=== PATIENT | male | born 1955 | race Caucasian/White ===

== ENCOUNTER → 2023-09-01 07:06 | Outpatient (REF) | payer MEDICARE, BC, SELFPAY | LOC: DHCBC/DCA 07:06 | PROVIDERS: ATTENDING PHYSICIAN Internal Medicine Cardiovascular Disease; FAMILY PHYSICIAN Family Medicine | DX: R07.89 Other chest pain (principal) | CPT/HCPCS: 78452; 93017; A9500 ==

== ENCOUNTER → 2023-10-27 08:13 | Outpatient (REF) | payer MEDICARE, BC, SELFPAY | LOC: HWRCS 08:13 | PROVIDERS: ATTENDING PHYSICIAN Internal Medicine Cardiovascular Disease; FAMILY PHYSICIAN Family Medicine | DX: I42.9 Cardiomyopathy, unspecified (principal) | CPT/HCPCS: 93306 ==

== ENCOUNTER 2023-11-05 06:16 | Day surgery (SDC) | payer MEDICARE, BC, SELFPAY ==
[2023-11-05] VITALS (9 sets, daily range): BP systolic 125–155; BP diastolic 61–98; BMI 29.0
[2023-11-05] MEDS: NSS 275 ML IV (06:50)
[2023-11-05 07:07] LABS: Glucose - Point of Care 119 mg/dl (70-99)
[2023-11-05 07:17] LABS: Hematocrit 43.3 % (39.0-52.0); Hemoglobin 15.6 g/dL (13.0-18.0); Mean Corpuscular Hgb 32.3 pg (27.0-31.0); Mean Corpuscular Volume 89.6 fL (80.0-94.0); Mean Platelet Volume 10.5 fL (7.4-10.4); Platelet Count 162 10^3/uL (130-400); Red Blood Cell Count 4.83 10^6/uL (4.70-6.10); Red Cell Dist. Width 12.4 % (11.5-14.5); White Blood Cell Count 7.6 10^3/uL (4.8-10.8)
[2023-11-05 07:24] LABS: ALT (SGPT) 42 U/L (0-50); AST (SGOT) 34 U/L (17-59); Albumin 4.5 g/dl (3.5-5.0); Alkaline Phosphatase 57 U/L (38-126); Blood Urea Nitrogen 17 mg/dl (9-20); Calcium 9.3 mg/dl (8.4-10.2); Carbon Dioxide 25 mmol/L (22-30); Chloride 103 mmol/L (98-107); Estimated Creatinine Clearance 104 ml/min; Glucose 141 mg/dl (70-99); Sodium 137 mmol/L (135-145); Total Protein 6.9 g/dl (6.3-8.2); eGFR > 60.00
[2023-11-05] MEDS: NSS 1000 IV (08:23)
--- NOTE | 2023-11-05 08:23 | ITS.CL.CATH ---
[facility] - Catheterization
Cardiac Catheterization
Procedure Report:
LEFT HEART CATHETERIZATION
Date of Procedure: November 05, 2023
Referring: Jacky Street MD
PROCEDURES:
1. Left heart catheterization, coronary angiogram.
2. Ultrasound-guided access.
INDICATION: New cardiomyopathy
ACCESS: Right radial artery, 6 Fr. sheath, under US guidance.
HEMODYNAMICS : (mmHg)
AO (s/d) : 152/95
LV (s/d) : 152/9
LVEDP : 14
CORONARY FINDINGS
DOMINANCE: Right
LEFT MAIN: The left main artery is a large-caliber, short vessel which gives rise to the left anterior descending artery, a ramus intermedius branch and the left circumflex artery. There is minimal luminal irregularities.
LEFT ANTERIOR DESCENDING: The left anterior descending artery is a large-caliber vessel which gives rise to multiple small caliber diagonal branches as it courses through the anterior interventricular groove and wraps around the apex. There is
minimal luminal irregularities.
RAMUS INTERMEDIUS: The ramus intermedius artery is a small to medium caliber vessel with minimal luminal irregularities.
CIRCUMFLEX: The left circumflex artery is a medium caliber vessel which gives rise to 2 major obtuse marginal branches. There is minimal luminal irregularities.
RIGHT CORONARY ARTERY: The right coronary artery is a large-caliber, dominant vessel which gives rise to the right posterior descending artery and the right posterolateral system. There is minimal luminal irregularities.
SEDATION: 30 minutes of procedural sedation was utilized. An independent medical doctor was present to assist with and help manage the patient's level of consciousness and physiologic status.
RADIATION SUMMARY: Fluoro Time (min): 3.8, Dose (mGy): 365.5, DAP (Gy.cm2) : 23.35
Closure Device: Vascular band over right radial artery, 10 cc of air.
CONCLUSIONS
1. No obstructive coronary artery disease.
2. Mildly elevated LVEDP at 14 mmHg.
3. Significant ventricular ectopy was noted throughout the case while on telemetry.
RECOMMENDATIONS
1. Continued optimization of goal-directed medical therapy for presumed nonischemic cardiomyopathy. We will also increase beta-yanna and attempts of reducing ventricular ectopy.
2. Wean radial band per protocol.
3. Aggressive management of cardiovascular risk factors.
Copy to: Jacky Street MD
Sharmila Gomez MD, FACC, [facility]
[2023-11-05 08:49] LABS: Glucose - Point of Care 136 mg/dl (70-99)
== END 2023-11-05 11:05 | disposition home or self-care (01) ==
LOC: CATH 06:16
PROVIDERS: ATTENDING PHYSICIAN Internal Medicine Interventional Cardiology; FAMILY PHYSICIAN Family Medicine; OTHER PHYSICIAN Internal Medicine Cardiovascular Disease
DX: I42.9 Cardiomyopathy, unspecified (principal); R07.89 Other chest pain; I10 Essential (primary) hypertension; E78.00 Pure hypercholesterolemia, unspecified; I49.3 Ventricular premature depolarization; E11.9 Type 2 diabetes mellitus without complications; Z87.891 Personal history of nicotine dependence; Z82.49 Family history of ischemic heart disease and other diseases of the circulatory system; Z79.84 Long term (current) use of oral hypoglycemic drugs; Z79.82 Long term (current) use of aspirin
CPT/HCPCS: 99152; 99153; C1894; 80053; 82962; 85027; 93458; Q9967

== ENCOUNTER → 2024-02-16 08:13 | Outpatient (REF) | payer MEDICARE, BC, SELFPAY | LOC: HWRCS 08:13 | PROVIDERS: ATTENDING PHYSICIAN Physician Assistant; FAMILY PHYSICIAN Family Medicine | DX: I42.9 Cardiomyopathy, unspecified (principal) | CPT/HCPCS: 93306 ==

== ENCOUNTER → 2025-03-05 09:20 | Outpatient (REF) | payer MEDICARE, BC, SELFPAY | LOC: MRI 3T 09:20 | PROVIDERS: ATTENDING PHYSICIAN Student in an Organized Health Care Education/Training Program; FAMILY PHYSICIAN Family Medicine | DX: D18.09 Hemangioma of other sites (principal); J33.9 Nasal polyp, unspecified | CPT/HCPCS: 70543; A9575 ==